=== PATIENT | male | born 1990 | race American Indian/Alaskan Native ===

== ENCOUNTER 2018-09-05 05:51 | Day surgery (SDC) | payer BC ==
[2018-09-05] MEDS ORDERED: NACL 0.9% 1000 ML 1,000 ML IV SCH (07:00)
[2018-09-05] MEDS ORDERED: WATER FOR IRRIG STERILE IR ONE (07:32)
--- NOTE | 2018-09-05 07:50 | Anesthesia Day of Surgery ---
Anesthesia Day of Surgery - Day of Surgery Patient Examined: Yes Patient H&P Reviewed: Yes Patient is NPO: Yes Beta Blockers: No Cardiac Clearance: No Pulmonary Clearance: No
--- NOTE | 2018-09-05 07:51 | Anesthesia Consultation ---
Anesthesia Consult and Med Hx - Airway Anesthetic Teeth Evaluation: Good ROM Head & Neck: Adequate Mental/Hyoid Distance: Adequate Mallampati Class: Class III Intubation Access Assessment: Good - Pulmonary Exam CTA: No - Cardiac Exam Cardiac Exam: No Murmur - Pre-Operative Health Status ASA Pre-Surgery Classification: ASA1 Proposed Anesthetic Plan: MAC - Pulmonary Hx Smoking: No Hx Asthma: No Hx Respiratory Symptoms: No SOB: No COPD: No Home Oxygen Therapy: No Hx Pneumonia: No Hx Sleep Apnea: No - Cardiovascular System Hx Hypertension: No Hx Coronary Artery Disease: No Hx Heart Attack/AMI: No Hx Angina: No Hx Percutaneous Transluminal Coronary Angioplasty (PTCA): No Hx Cardia Arrhythmia: No Hx Pacemaker: No Hx Internal Defibrillator: No Hx Valvular Heart Disease: No Hx Heart Murmur: No Hx Peripheral Vascular Disease: No - Central Nervous System Hx Neuromuscular Disorder: No Hx Seizures: No CVA: No Hx Back Pain: No Hx Psychiatric Problems: No - Gastrointestinal Hx Ulcer: No Hx Gastroesophageal Reflux Disease: No - Endocrine Hx Renal Disease: No Hx End Stage Renal Disease: No Hx Cirrhosis: No Hx Liver Disease: No Hx Insulin Dependent Diabetes: No Hx Non-Insulin Dependent Diabetes: No Hx Thyroid Disease: No Hx Hypothyroidism: No Hx Hyperthyroidism: No - Hematic Hx Anemia: No Hx Sickle Cell Disease: No - Other Systems Hx Alcohol Use: No Hx Substance Use: No Hx Cancer: No Hx Obesity: No
[2018-09-05] MEDS ORDERED: DIPRIVAN 10 MG/ML IV ONE ×2 (08:16→08:17)
[2018-09-05] MEDS ORDERED: XYLOCAINE 2% INFILTRATI ONE (08:17)
[2018-09-05] MEDS ORDERED: XYLOCAINE 2% UROJET ONE (08:41)
[2018-09-05] MEDS ORDERED: SUBLIMAZE IV ONE (09:05)
[2018-09-05] MEDS ORDERED: SUBLIMAZE ONE (09:06)
[2018-09-05] MEDS ORDERED: ZOFRAN ONE (09:11)
--- NOTE | 2018-09-05 09:20 | Short Stay Summary ---
Short Stay Documentation Date of service: 09/05/18 Narrative H&P: The patient presents for flex sig and banding of bleeding internal hemorrhoids - History Past Medical History: No medical history Past Surgical History: No surgical history Social history: no significant social history, no smoking, no alcohol abuse - Allergies and Medications Current Medications: Allergies shellfish derived Adverse Reaction (Verified 09/05/18 06:58) Anaphylaxis Home Medications Medication Instructions Recorded Confirmed Last Taken Type No Known Home Medications [No 09/05/18 09/05/18 Unknown History Reported Home Medications] Active Medications Sodium Chloride (Nacl 0.9% 1000 Ml) 1,000 mls @ 50 mls/hr IV DIRECT FAY Last Admin: 09/05/18 07:52 Dose: 50 mls/hr Documented by: - Physical exam General appearance: no acute distress, well-nourished Integumentary: no rash, no growths, no abnormal pigmentation HEENT: PERRLA, EOMI, Mucous membr. moist/pink Lungs: Clear to auscultation Breasts: normal Heart: Regular rate, Normal S1, Normal S2, No murmurs Gastrointestinal: normoactive bowel sounds, no tenderness, no distended, no m asses, no guarding, no organomegaly Male Genitourinary: deferred Rectal Exam: normal exam-external/orifice, normal rectal tone, hemorrhoids (small external hemorrhoids) Extremities: no ischemia, pulses intact, pulses symmetrical, No edema, normal temperature Neurological: Normal gait, Normal speech, Normal tone, Sensation intact, Cranial nerves 3-12 NL - Disposition Condition at discharge: Good Disposition: DC-01 TO HOME OR SELFCARE - Discharge Diagnoses (1) Hemorrhoids with complication Status: Acute Short Stay Discharge Plan Activity: advance as tolerated, other (no driving for 24 hours) Weight Bearing Status: Full Weight Bearing Diet: regular Follow up with: PRIMARY CARE, [Primary Care Provider] - 7 Days Prescriptions: HYDROcodone/ACETAMINOPHEN [Hydrocodone-Acetamin 10-325 mg] 1 each PO Q6HR PRN #10 tablet PRN Reason: Pain , Severe (7-10)
[2018-09-05 10:01] VITALS: BP 135/91
--- NOTE | 2018-09-15 11:32 | Operative Report ---
Operative Report Operative Report: Date of procedure: 09/05/2018 Preprocedure diagnosis: Internal hemorrhoids with bleeding Post procedure diagnoses: Same Procedure: Flexible sigmoidoscopy with 4 quadrant banding of hemorrhoids Endoscopist: Michael Palafox M.D. Estimated blood loss: 0 Medications:. Propofol per anesthesia After careful discussion of the nature and purpose of the procedure, risks, benefits, and alternatives consent was obtained. The patient was placed in the left lateral decubitus position and medicated per anesthesia-see separate records for details. A rectal exam was performed. Sphincter tone was normal and no masses were palpable. The tip of the [employer] EQ 570 video scope was passed transanally and advanced under continuous direct vision to 40 cm]. Colon preparation was good. Findings included 2-3+ size internal hemorrhoids. The scope was transiently withdrawn followed by loading the banding device. The scope was then reintroduced transanally and retroflexed in the rectum. 4 bands were placed circumferentially on hemorrhoids being careful to avoid the dentate line. The procedure was well-tolerated overall. Conclusions: 2-3+ internal hemorrhoids with recurrent bleeding. Status post banding. Plan: Office follow-up in 4-6 weeks.. Electronically signing: Michael Palafox M.D.
== END 2018-09-05 05:52 | disposition home or self-care (01) ==
LOC: GIO 05:51
PROVIDERS: ATTEND Internal Medicine Gastroenterology
DX: K64.8 Other hemorrhoids (principal); K62.5 Hemorrhage of anus and rectum; Z79.899 Other long term (current) drug therapy; Z91.013 Allergy to seafood; Z80.0 Family history of malignant neoplasm of digestive organs
CPT/HCPCS: 45350; J2405; J2704; J3010; J7030